=== PATIENT | female | born 1985 | race Caucasian/White ===

== ENCOUNTER 2023-06-22 03:07 | Emergency (ER) | payer BC ==
[~2023-06-22] VITALS: Ht 177.8 cm; Wt 56.7 kg
[2023-06-22] MEDS ORDERED: CYCLOBENZAPRINE 10 MG TABLET ONE (03:28)
[2023-06-22] MEDS ORDERED: CYCLOBENZAPRINE 10 MG TABLET PO ONE (03:30)
[2023-06-22] MEDS ORDERED: PROPOFOL 20 ML IV ONE (04:22)
[2023-06-22] MEDS ORDERED: PROPOFOL 200 MG/20 ML VIAL IV ONE (04:30)
[2023-06-22] MEDS ORDERED: KETOROLAC TROMETHAMINE INJ 30 MG/ML VIAL ONE (04:51)
[2023-06-22] MEDS ORDERED: KETOROLAC TROMETHAMINE INJ 30 MG/ML VIAL IV ONE (05:00)
[2023-06-22 05:43] VITALS: BP 131/78; TEMP 98.3; O2SAT 100
== END 2023-06-22 05:43 | disposition home or self-care (01) ==
LOC: ER 03:11
DX: M23.91 Unspecified internal derangement of right knee (principal); M25.561 Pain in right knee; Z60.2 Problems related to living alone
CPT/HCPCS: 99285; 29505; 99152; 73564; J2704; J1885; J7030; G0500